=== PATIENT | female | born 1970 | race African-American/Black ===

== ENCOUNTER → 2016-11-17 | Outpatient (CLI) | payer OTHER ==
--- NOTE | ~2016-11-17 | CR97 ---
[facility] A Service of [facility] & [facility] RADIOLOGY TEXT RESULTS PATIENT: TIMA SAHA LOCATION: [facility] : 72 UNIT #: [id number] AGE: [address]: Dajuan Garcia III, MD SEX: F ORDER DR: [id number] [facility] [address] [place], [place] [address] [id number] O MR#: [id number] Acc #: [id number] NAME: TIMA SAHA : 1970 SEX: F STUDY DATE/TIME: 11/17/2016 8:19 UNIT: [facility] ROOM: STUDY DESCRIPTION: CR Esophagram Attending Physician: Dajuan Garcia III, M.D. Referring Physician: Dajuan Garcia III, M.D. Ordering Physician: Dajuan Garcia III, M.D. Primary Care Physician: Malick Moncada M.D. MEDICAL IMAGING REPORT This report is preliminary unless electronic signature is present EXAM Fluoroscopic esophagram. COMPARISON STUDIES 2 views of the chest dated November 17, 2016. INDICATION 46-year-old female with a sore throat for 2 weeks. Preoperative evaluation prior to gastric lap-band surgery for obesity. FINDINGS The patient was administered barium by mouth followed by imaging of the esophagus in the left posterior oblique positioning at 3 frames/sec. Peristaltic activity of the esophagus is normal. There is no evidence of extrinsic mass effect or intrinsic esophageal lesion. No evidence of stricture. There is normal position of the stomach. No evidence of hiatal hernia. No gastroesophageal reflux seen on this exam. A total of 7 images were obtained. Total fluoro time was 0.5 minutes. IMPRESSION Normal esophagram. No evidence of hiatal hernia or reflux. Dictated by... Deshawn Morrissey M.D. THIS IS AN ELECTRONICALLY VERIFIED REPORT Deshawn Morrissey M.D. at 11/19/2016 7:11 PM MÓNICA/aroldo TD: 11/17/2016 17:25 [facility] A Service of [facility] & [facility] RADIOLOGY TEXT RESULTS PATIENT: [id number] [birth year] UNIT #: [id number] AGE: [address]: Dajuan Garcia III, MD SEX: F ORDER DR: JOB #: [id number] MEDICAL IMAGING REPORT COPY
--- NOTE | ~2016-11-17 | CR63 ---
[facility] A Service of [facility] & [facility] RADIOLOGY TEXT RESULTS PATIENT: TIMA SAHA LOCATION: [facility] : 71 UNIT #: [id number] AGE: [address]: Dajuan Garcia III, MD SEX: F ORDER DR: [id number] [facility] [address] [place], [place] [address] [id number] O MR#: [id number] Acc #: [id number] NAME: TIMA SAHA : 1970 SEX: F STUDY DATE/TIME: 11/17/2016 7:42 UNIT: [facility] ROOM: STUDY DESCRIPTION: CR Chest 2 View Attending Physician: Dajuan Garcia III, M.D. Referring Physician: Dajuan Garcia III, M.D. Ordering Physician: Dajuan Garcia III, M.D. Primary Care Physician: Malick Moncada M.D. MEDICAL IMAGING REPORT This report is preliminary unless electronic signature is present EXAM PA and lateral chest. INDICATIONS 46-year-old female preop for LAP-BAND surgery. COMPARISON No comparisons. FINDINGS The lungs are well expanded and clear. The heart size is normal. The visualized osseous structures are unremarkable. IMPRESSION Negative chest. Dictated by... Renzo Vidales M.D. THIS IS AN ELECTRONICALLY VERIFIED REPORT Renzo Vidales M.D. at 11/17/2016 5:06 PM ARS/prosper TD: 11/17/2016 10:32 JOB #: [id number] MEDICAL IMAGING REPORT COPY
--- NOTE | ~2016-11-17 | EKG ---
PATIENT: KELSIE SAHAONETTE UNIT #: [id number] Ventricular Rate: 67 BPM Atrial Rate: 67 BPM P-R Interval: 166 ms QRS Duration: 86 ms Q-T Interval: 372 ms QTC Calculation(Bezet): 393 ms P [place]: 58 degrees Calculated R [place]: 41 degrees Calculated T [place]: 36 degrees Diagnosis Line: Normal sinus rhythm Diagnosis Line: Normal ECG Diagnosis Line: Diagnosis Line: Confirmed by VANESSA SUTHERLAND MD ([id number]) on Diagnosis Line: 11/19/2016 11:58:33 PM INTERPRETING MD: KOKO COONEY
[2016-11-17 09:35] LABS: HEMATOCRIT 42.2 % (35.0-45.0); HEMOGLOBIN 14.3 gm/dL (12.0-16.0); MEAN CELL VOLUME 91.6 FL (83-96); MEAN CORPUSCULAR HGB CONC 33.9 g/dL (30-36); MEAN PLATELET VOLUME 7.6 FL (6.5-11.5); RED BLOOD COUNT 4.61 X10e (3.90-5.30); RED CELL DISTRIBUTION WIDTH 13.5 % (11.0-15.5); WHITE BLOOD COUNT 4.5 X10e3 (4.0-10.5)
[2016-11-17 10:27] LABS: ALBUMIN SERUM 3.7 g/dL (3.5-5.0); ALKALINE PHOSPHATASE 73 U/L (32-92); ALT (SGPT) 11 U/L (10-40); AST (SGOT) 14 U/L (10-42); BILIRUBIN,TOTAL 0.6 mg/dL (0.2-2.0); BLOOD UREA NITROGEN 15 mg/dL (9-23); BUN/CREATININE RATIO 21.42; CALCIUM SERUM 9.2 mg/dL (8.4-10.2); CARBON DIOXIDE 26 mmol/L (22-31); CHLORIDE 103 mmol/L (100-111); CHOLESTEROL 122 mg/dL (0-200); CREATININE SERUM 0.7 mg/dL (0.6-1.4); GLOM FILT RATE Estimated ABOVE60 mL/min (>60); GLUCOSE FASTING 94 mg/dL (70-110); HDL CHOLESTEROL 36 mg/dL (35-95); LDL CHOLESTEROL 74 mg/dL (-130); LDL/HDL RATIO 2 RATIO (0-4); POTASSIUM 4.3 mmol/L (3.5-5.1); PROTEIN TOTAL SERUM 7.2 g/dL (6.0-8.3); SODIUM 136 mmol/L (135-145); TRIGLYCERIDES 61 mg/dL (10-160)
== END | disposition home or self-care (01) ==
LOC: CBAR 07:27
PROVIDERS: Surgery
DX: Z01.818 Encounter for other preprocedural examination (principal)
CPT/HCPCS: 36415; 71020; 74220; 80053; 80061; 84443; 85027; 93005